=== PATIENT | male | born 1975 | race Caucasian/White ===

== ENCOUNTER 2021-07-24 19:56 | Inpatient (IN) ==
[2021-07-25] MEDS ORDERED: *HR* LORazepam 2 MG/ML VIAL IVP PRN ×3 (00:36→03:07)
[2021-07-25] MEDS ORDERED: Thiamine (B-1) 100 MG, Folic Acid 1 MG in 0.9 % Sodium Chloride 100 ML IVPB ONE (01:00)
[2021-07-25] MEDS ORDERED: Ondansetron 4 MG/2 ML VIAL IVP PRN (01:48)
[2021-07-25] MEDS ORDERED: Naloxone 0.4 MG/ML INJ IVP PRN (01:48)
[2021-07-25 01:55] LABS: Basophils # 0.2 K/mcL (0.0-0.2); Basophils % 1.2 %; Eosinophils # 1.5 K/mcL (0.0-0.6); Eosinophils % 8.9 %; Hematocrit 36.9 % (37.5-50.1); Immature Granulocytes % 0.7 % (0-4); Lymphocytes # 2.2 K/mcL (0.6-4.6); Lymphocytes % 13.4 %; Mean Corpuscular HGB Conc 32.5 g/dL (31.6-35.5); Mean Corpuscular Hemoglobin 32.9 pg (28.0-33.3); Mean Corpuscular Volume 101.1 fL (83.0-100.0); Monocytes # 2.2 K/mcL (0.0-1.3); Monocytes % 13.3 %; Neutrophils # 10.4 K/mcL (1.6-8.9); Platelet Count 304 K/mcL (140-400); Red Blood Count 3.65 M/mcL (4.19-5.50); Red Cell Distribution Width 12.5 % (11.5-14.5); Segmented Neutrophils % 62.5 %; White Blood Count 16.6 K/mcL (4.3-11.1)
[2021-07-25 02:18] LABS: Alanine Aminotransferase 12 Units/L (7-52); Albumin 3.2 g/dL (3.5-5.7); Albumin/Globulin Ratio 0.9 (1.1-2.2); Alkaline Phosphatase 195 Units/L (34-104); Amylase 204 Units/L (29-103); Aspartate Amino Transferase 13 Units/L (13-39); BUN/Creatinine Ratio 13 (6-26); Bilirubin,Direct 0.4 mg/dL (0.0-0.2); Bilirubin,Indirect 0.6 mg/dL (0.0-1.0); Blood Urea Nitrogen 6 mg/dL (6-20); Calcium 8.3 mg/dL (8.6-10.3); Carbon Dioxide 27 mEq/L (23-29); Chloride 99 mEq/L (98-107); Ethanol < 10 mg/dL (Less than 10); Globulin 3.4 g/dL (2.4-3.5); Glucose 92 mg/dL (70-105); Lipase 390 Units/L (11-82); Osmolality,Calculated 277 (280-300); Potassium 3.4 mEq/L (3.5-5.1); Sodium 135 mEq/L (136-145); Total Protein 6.6 g/dL (6.4-8.9); Troponin I < 0.03 ng/mL (< 0.04); eGFR For African Americans > 60 (> 60); eGFR For Non-African Americans > 60 (> 60)
[2021-07-25 02:32] LABS: Influenza A PCR Negative (Negative); Influenza B PCR Negative (Negative); Resp. Syncytial Virus PCR Negative (Negative); SARS-CoV-2 by PCR (In House) Negative (Negative)
[2021-07-25] MEDS: Piperacillin/Tazobactam 3.375 GM in 0.9 % Sodium Chloride Mini Bag 100 ML IVPB SCH ×3 (03:56→18:56)
[2021-07-25] MEDS: Ringers Solution, Lactated 1,000 ML IVC SCH ×2 (04:00→10:56)
[2021-07-25 04:28] LABS: Hematocrit 37.6 % (37.5-50.1); Hemoglobin 12.1 g/dL (12.9-16.9); Mean Corpuscular HGB Conc 32.2 g/dL (31.6-35.5); Mean Corpuscular Hemoglobin 32.4 pg (28.0-33.3); Mean Corpuscular Volume 100.5 fL (83.0-100.0); Mean Platelet Volume 10.2 fL (9.4-12.4); Platelet Count 308 K/mcL (140-400); Red Blood Count 3.74 M/mcL (4.19-5.50); Red Cell Distribution Width 12.5 % (11.5-14.5)
[2021-07-25 04:35] LABS: INR 1.5; Prothrombin Time 16.8 Seconds (9.4-12.1)
[2021-07-25 04:50] LABS: Alanine Aminotransferase 14 Units/L (7-52); Albumin 3.2 g/dL (3.5-5.7); Alkaline Phosphatase 185 Units/L (34-104); Aspartate Amino Transferase 19 Units/L (13-39); BUN/Creatinine Ratio 10 (6-26); Bilirubin,Direct 0.1 mg/dL (0.0-0.2); Bilirubin,Indirect 0.9 mg/dL (0.0-1.0); Blood Urea Nitrogen 5 mg/dL (6-20); Calcium 8.3 mg/dL (8.6-10.3); Carbon Dioxide 27 mEq/L (23-29); Chloride 100 mEq/L (98-107); Globulin 3.3 g/dL (2.4-3.5); Glucose 81 mg/dL (70-105); Osmolality,Calculated 278 (280-300); Potassium 3.9 mEq/L (3.5-5.1); Sodium 136 mEq/L (136-145); Total Protein 6.5 g/dL (6.4-8.9); eGFR For African Americans > 60 (> 60); eGFR For Non-African Americans > 60 (> 60)
[2021-07-25 14:32] LABS: Hematocrit 33.3 % (37.5-50.1)
[2021-07-25] MEDS ORDERED: Dextrose Gel 15 GM/37.5 ML TUBE PO PRN ×2 (23:36)
[2021-07-25] MEDS ORDERED: D5% in Water 1,000 ML IVC PRN (23:36)
[2021-07-25] MEDS ORDERED: *HR* Dextrose 50 % in Water (Syg) 50 ML SYRINGE IVP PRN (23:36)
[2021-07-26 02:25] LABS: Basophils # 0.2 K/mcL (0.0-0.2); Basophils % 1.3 %; Eosinophils # 1.1 K/mcL (0.0-0.6); Eosinophils % 7.8 %; Hematocrit 34.8 % (37.5-50.1); Hemoglobin 11.6 g/dL (12.9-16.9); Immature Granulocytes % 0.7 % (0-4); Lymphocytes # 2.8 K/mcL (0.6-4.6); Lymphocytes % 20.2 %; Mean Corpuscular HGB Conc 33.3 g/dL (31.6-35.5); Mean Corpuscular Hemoglobin 33.3 pg (28.0-33.3); Mean Platelet Volume 10.2 fL (9.4-12.4); Monocytes # 1.7 K/mcL (0.0-1.3); Monocytes % 12.4 %; Neutrophils # 8.1 K/mcL (1.6-8.9); Platelet Count 352 K/mcL (140-400); Red Blood Count 3.48 M/mcL (4.19-5.50); Red Cell Distribution Width 12.5 % (11.5-14.5); Segmented Neutrophils % 57.6 %
[2021-07-26 02:37] LABS: INR 1.4; Prothrombin Time 16.1 Seconds (9.4-12.1)
[2021-07-26 02:44] LABS: Alanine Aminotransferase 9 Units/L (7-52); Albumin/Globulin Ratio 0.9 (1.1-2.2); Alkaline Phosphatase 175 Units/L (34-104); Aspartate Amino Transferase 9 Units/L (13-39); BUN/Creatinine Ratio 9 (6-26); Bilirubin,Total 0.8 mg/dL (0.3-1.0); Blood Urea Nitrogen 5 mg/dL (6-20); Carbon Dioxide 25 mEq/L (23-29); Chloride 100 mEq/L (98-107); Globulin 3.3 g/dL (2.4-3.5); Glucose 52 mg/dL (70-105); Lipase 177 Units/L (11-82); Magnesium 2.1 mg/dL (1.6-2.6); Osmolality,Calculated 279 (280-300); Potassium 3.2 mEq/L (3.5-5.1); Sodium 137 mEq/L (136-145); Total Protein 6.3 g/dL (6.4-8.9); eGFR For African Americans > 60 (> 60); eGFR For Non-African Americans > 60 (> 60)
[2021-07-26] MEDS: Piperacillin/Tazobactam 3.375 GM in 0.9 % Sodium Chloride Mini Bag 100 ML IVPB SCH ×3 (02:58→21:19)
[2021-07-26] MEDS ORDERED: *HR* Heparin 5,000 UNIT/ML VIAL IVP ONE (10:56)
[2021-07-26] MEDS ORDERED: *HR* Heparin 5,000 UNIT/ML VIAL IVP PRN (10:56)
[2021-07-26 12:38] LABS: Hematocrit 33.6 % (37.5-50.1); Hemoglobin 11.3 g/dL (12.9-16.9); Mean Corpuscular HGB Conc 33.6 g/dL (31.6-35.5); Mean Corpuscular Hemoglobin 33.7 pg (28.0-33.3); Mean Corpuscular Volume 100.3 fL (83.0-100.0); Mean Platelet Volume 10.2 fL (9.4-12.4); Platelet Count 391 K/mcL (140-400); Red Blood Count 3.35 M/mcL (4.19-5.50); Red Cell Distribution Width 12.3 % (11.5-14.5); White Blood Count 13.8 K/mcL (4.3-11.1)
[2021-07-26] MEDS: Heparin 25,000UNIT/250ML 1/2NS 25,000 UNIT/250 ML IV.SOLN IVC SCH (12:43)
[2021-07-26 12:46] LABS: Heparin anti-factor XA UFH < 0.04 IU/mL (0.30-0.70)
[2021-07-26 12:47] LABS: INR 1.5; Prothrombin Time 16.2 Seconds (9.4-12.1)
[2021-07-26] MEDS: *HR* Heparin 5,000 UNIT/ML VIAL IVP PRN (21:17)
[2021-07-27] MEDS: Piperacillin/Tazobactam 3.375 GM in 0.9 % Sodium Chloride Mini Bag 100 ML IVPB SCH ×2 (03:45→11:43)
[2021-07-27 03:59] LABS: Hematocrit 34.8 % (37.5-50.1); Hemoglobin 11.3 g/dL (12.9-16.9); Mean Corpuscular HGB Conc 32.5 g/dL (31.6-35.5); Mean Corpuscular Hemoglobin 32.5 pg (28.0-33.3); Mean Platelet Volume 9.8 fL (9.4-12.4); Platelet Count 392 K/mcL (140-400); Red Blood Count 3.48 M/mcL (4.19-5.50); Red Cell Distribution Width 12.4 % (11.5-14.5); White Blood Count 12.1 K/mcL (4.3-11.1)
[2021-07-27 04:17] LABS: Alanine Aminotransferase 9 Units/L (7-52); Albumin 3.2 g/dL (3.5-5.7); Albumin/Globulin Ratio 0.9 (1.1-2.2); Alkaline Phosphatase 235 Units/L (34-104); Aspartate Amino Transferase 13 Units/L (13-39); BUN/Creatinine Ratio 6 (6-26); Bilirubin,Total 0.8 mg/dL (0.3-1.0); Blood Urea Nitrogen 3 mg/dL (6-20); Calcium 8.5 mg/dL (8.6-10.3); Carbon Dioxide 30 mEq/L (23-29); Chloride 97 mEq/L (98-107); Globulin 3.7 g/dL (2.4-3.5); Glucose 90 mg/dL (70-105); Magnesium 2.1 mg/dL (1.6-2.6); Osmolality,Calculated 272 (280-300); Potassium 3.1 mEq/L (3.5-5.1); Sodium 133 mEq/L (136-145); Total Protein 6.9 g/dL (6.4-8.9); eGFR For African Americans > 60 (> 60); eGFR For Non-African Americans > 60 (> 60)
[2021-07-27] MEDS: *HR* Heparin 5,000 UNIT/ML VIAL IVP PRN (04:28)
[2021-07-27] MEDS: Heparin 25,000UNIT/250ML 1/2NS 25,000 UNIT/250 ML IV.SOLN IVC SCH (11:47)
[2021-07-27] MEDS ORDERED: Apixaban 5 MG TABLET PO SCH (14:45)
[2021-07-27 15:31] VITALS: BP 124/75; PULSE 56; TEMP 97.8; O2SAT 97
== END 2021-07-27 18:52 | disposition home or self-care (01) | DRG 282 ==
LOC: EMEROOARM 19:56 → 3ANU 19:56 → SUATTDRO 07-25 02:01 → 3ANU 07-25 03:28
PROVIDERS: ADMIT Internal Medicine; ATTEND Internal Medicine

== ENCOUNTER 2021-08-30 22:14 | Observation (INO) ==
[2021-08-30 23:11] LABS: Basophils % 0.4 %; Eosinophils # 0.2 K/mcL (0.0-0.6); Eosinophils % 2.5 %; Hematocrit 37.9 % (37.5-50.1); Hemoglobin 12.6 g/dL (12.9-16.9); Immature Granulocytes % 0.4 % (0-4); Lymphocytes # 1.8 K/mcL (0.6-4.6); Lymphocytes % 19.8 %; Mean Corpuscular HGB Conc 33.2 g/dL (31.6-35.5); Mean Corpuscular Hemoglobin 32.1 pg (28.0-33.3); Mean Corpuscular Volume 96.7 fL (83.0-100.0); Mean Platelet Volume 9.6 fL (9.4-12.4); Monocytes # 0.9 K/mcL (0.0-1.3); Monocytes % 9.7 %; Neutrophils # 6.1 K/mcL (1.6-8.9); Platelet Count 217 K/mcL (140-400); Red Blood Count 3.92 M/mcL (4.19-5.50); Segmented Neutrophils % 67.2 %; White Blood Count 9.1 K/mcL (4.3-11.1)
[2021-08-30 23:30] LABS: Alanine Aminotransferase 18 Units/L (7-52); Albumin 2.8 g/dL (3.5-5.7); Albumin/Globulin Ratio 0.8 (1.1-2.2); Alkaline Phosphatase 153 Units/L (34-104); Aspartate Amino Transferase 35 Units/L (13-39); BUN/Creatinine Ratio 7 (6-26); Bilirubin,Direct 0.2 mg/dL (0.0-0.2); Bilirubin,Indirect 0.5 mg/dL (0.0-1.0); Bilirubin,Total 0.7 mg/dL (0.3-1.0); Blood Urea Nitrogen 3 mg/dL (6-20); Calcium 7.9 mg/dL (8.6-10.3); Carbon Dioxide 25 mEq/L (23-29); Chloride 101 mEq/L (98-107); Globulin 3.6 g/dL (2.4-3.5); Glucose 70 mg/dL (70-105); Lipase 363 Units/L (11-82); Osmolality,Calculated 277 (280-300); Potassium 3.5 mEq/L (3.5-5.1); Sodium 136 mEq/L (136-145); Total Protein 6.4 g/dL (6.4-8.9); eGFR For African Americans > 60 (> 60); eGFR For Non-African Americans > 60 (> 60)
[2021-08-30 23:42] LABS: INR 1.2; Prothrombin Time 13.7 Seconds (9.4-12.1)
[2021-08-30 23:45] LABS: Activated Partial Thrombo Time 35.7 Seconds (26.0-36.0)
[2021-08-31] MEDS ORDERED: Isovue-370 500 ML BOTTLE IVP ONE (00:07)
[2021-08-31] MEDS ORDERED: 0.9 % Sodium Chloride 1,000 ML IVC ONE (02:37)
[2021-08-31] MEDS ORDERED: Melatonin 3 MG TABLET PO PRN (02:45)
[2021-08-31] MEDS ORDERED: Acetaminophen 325 MG TABLET PO PRN (02:45)
[2021-08-31] MEDS ORDERED: Naloxone 0.4 MG/ML INJ IVP PRN (02:45)
[2021-08-31] MEDS ORDERED: Ondansetron 4 MG/2 ML VIAL IVP PRN (02:45)
[2021-08-31] MEDS ORDERED: *HR* LORazepam 2 MG/ML VIAL IVP PRN ×3 (02:46)
[2021-08-31] MEDS ORDERED: Pantoprazole 40 MG VIAL IVP ONE (02:47)
[2021-08-31] MEDS ORDERED: Saliva Stimulant 44.3ml BOTTLE PO PRN (02:49)
[2021-08-31] MEDS ORDERED: Morphine Sulfate 2 MG/ML SYRINGE IVP STA (02:53)
[2021-08-31] MEDS ORDERED: Ondansetron 4 MG/2 ML VIAL IVP ONE (02:54)
[2021-08-31] MEDS ORDERED: Dextrose Gel 15 GM/37.5 ML TUBE PO PRN ×2 (03:25)
[2021-08-31] MEDS ORDERED: *HR* Dextrose 50 % in Water (Syg) 50 ML SYRINGE IVP PRN (03:25)
[2021-08-31] MEDS ORDERED: D5% in Water 1,000 ML IVC PRN (03:25)
[2021-08-31] MEDS ORDERED: Ipratropium/Albuterol Neb 3 ML IH PRN (03:46)
[2021-08-31] MEDS: Calcium Gluconate 1gm/50mL 1 GM/50 ML BAG IVPB SCH ×2 (05:29→06:48)
[2021-08-31 05:57] LABS: Basophils % 0.6 %; Eosinophils # 0.3 K/mcL (0.0-0.6); Eosinophils % 3.7 %; Hematocrit 36.1 % (37.5-50.1); Hemoglobin 11.9 g/dL (12.9-16.9); Immature Granulocytes % 0.3 % (0-4); Lymphocytes # 1.9 K/mcL (0.6-4.6); Lymphocytes % 25.5 %; Mean Corpuscular Hemoglobin 32.3 pg (28.0-33.3); Mean Corpuscular Volume 98.1 fL (83.0-100.0); Mean Platelet Volume 9.9 fL (9.4-12.4); Monocytes # 0.8 K/mcL (0.0-1.3); Monocytes % 10.3 %; Neutrophils # 4.3 K/mcL (1.6-8.9); Platelet Count 196 K/mcL (140-400); Red Blood Count 3.68 M/mcL (4.19-5.50); Red Cell Distribution Width 15.1 % (11.5-14.5); Segmented Neutrophils % 59.6 %; White Blood Count 7.3 K/mcL (4.3-11.1)
[2021-08-31] MEDS ORDERED: Pantoprazole 40 MG VIAL IVP SCH ×2 (06:00→18:00)
[2021-08-31] MEDS ORDERED: Calcium Gluconate 1gm/50mL 1 GM/50 ML BAG IVPB SCH (06:00)
[2021-08-31 06:09] LABS: Alanine Aminotransferase 16 Units/L (7-52); Albumin 2.5 g/dL (3.5-5.7); Alkaline Phosphatase 157 Units/L (34-104); Aspartate Amino Transferase 30 Units/L (13-39); BUN/Creatinine Ratio 8 (6-26); Bilirubin,Total 0.9 mg/dL (0.3-1.0); Blood Urea Nitrogen 3 mg/dL (6-20); Calcium 7.7 mg/dL (8.6-10.3); Carbon Dioxide 22 mEq/L (23-29); Chloride 102 mEq/L (98-107); Ethanol < 10 mg/dL (Less than 10); Glucose 63 mg/dL (70-105); Osmolality,Calculated 277 (280-300); Potassium 3.8 mEq/L (3.5-5.1); Sodium 136 mEq/L (136-145); eGFR For African Americans > 60 (> 60); eGFR For Non-African Americans > 60 (> 60)
[2021-08-31 06:10] LABS: Chol/HDL Ratio 2.6 (0-4.9)
[2021-08-31 06:15] LABS: Albumin/Globulin Ratio 0.8 (1.1-2.2); Globulin 3.3 g/dL (2.4-3.5); Total Protein 5.8 g/dL (6.4-8.9)
[2021-08-31] MEDS: Octreotide 400 MCG in 0.9 % Sodium Chloride 100 ML IVC SCH ×2 (06:40→14:38)
[2021-08-31 07:38] LABS: INR 1.3; Prothrombin Time 14.1 Seconds (9.4-12.1)
[2021-08-31 07:40] LABS: Activated Partial Thrombo Time 34.1 Seconds (26.0-36.0)
[2021-08-31] MEDS ORDERED: Ringers Solution, Lactated 1,000 ML IVC SCH ×2 (07:45→13:52)
[2021-08-31] MEDS: Ipratropium/Albuterol Neb 3 ML IH SCH ×3 (08:01→19:53)
[2021-08-31] MEDS: Budesonide/Formoterol 160/4.5 1 PUFF INH IH SCH ×2 (08:02→19:52)
[2021-08-31] MEDS: MethylPREDNISolone 40 MG/ML VIAL IVP SCH (08:03)
[2021-08-31] MEDS: Nicotine 21 MG PATCH.TD24 TD SCH (08:04)
[2021-08-31] MEDS: Folic Acid 1 MG in 0.9 % Sodium Chloride 50 ML IVPB SCH (08:04)
[2021-08-31] MEDS: Sennosides/Docusate Sodium TABLET PO SCH ×2 (08:04→20:41)
[2021-08-31] MEDS: polyethylene glycoL 3350 17 GM POWD.PACK PO SCH (08:04)
[2021-08-31] MEDS ORDERED: Folic Acid 1 MG TABLET PO SCH (09:00)
[2021-08-31] MEDS ORDERED: Thiamine (B-1) 100 MG TABLET PO SCH (09:00)
[2021-08-31] MEDS ORDERED: Vitamin B Complex/Vit C/Vit E 1 EACH TABLET PO SCH (09:00)
[2021-08-31] MEDS: Thiamine (B-1) 200 MG in 0.9 % Sodium Chloride 50 ML IVPB SCH (09:03)
[2021-08-31] MEDS ORDERED: Lidocaine -MPF 2% 5 ML VIAL ONE (13:56)
[2021-08-31] MEDS ORDERED: *HR* Propofol 200 MG/20 ML VIAL IVP ONE ×2 (13:56→14:05)
[2021-08-31 15:03] LABS: RBC,Peritoneal Fluid 10000 RBC/mcL
[2021-08-31 15:23] LABS: Glucose,Peritoneal Fluid 62 mg/dL (No Ref Range); LDH,Peritoneal Fluid 70 Units/L (No Ref Range); Total Protein,Peritoneal Fluid < 2.0 g/dL
[2021-08-31 16:24] LABS: Appearance of Peritoneal Fl HAZY (Clear)
[2021-08-31 17:31] LABS: Basophils,Peritoneal Fluid 0 %; Eosinophils,Peritoneal Fluid 0 %
[2021-08-31] MEDS ORDERED: Thiamine (B-1) 100 MG, Folic Acid 1 MG, MVI, adult with vitamin K 10 ML in 0.9 % Sodi... IVPB SCH (18:00)
[2021-09-01] MEDS: Ipratropium/Albuterol Neb 3 ML IH SCH ×2 (03:57→07:53)
[2021-09-01 04:28] VITALS: TEMP 98.1
[2021-09-01 04:55] LABS: Basophils % 0.4 %; Eosinophils % 0.4 %; Hematocrit 32.7 % (37.5-50.1); Immature Granulocytes % 0.5 % (0-4); Lymphocytes # 1.8 K/mcL (0.6-4.6); Lymphocytes % 21.9 %; Mean Corpuscular HGB Conc 33.6 g/dL (31.6-35.5); Mean Corpuscular Hemoglobin 32.3 pg (28.0-33.3); Mean Corpuscular Volume 95.9 fL (83.0-100.0); Mean Platelet Volume 10.8 fL (9.4-12.4); Monocytes # 0.8 K/mcL (0.0-1.3); Monocytes % 9.3 %; Neutrophils # 5.7 K/mcL (1.6-8.9); Platelet Count 194 K/mcL (140-400); Red Blood Count 3.41 M/mcL (4.19-5.50); Red Cell Distribution Width 14.9 % (11.5-14.5); Segmented Neutrophils % 67.5 %; White Blood Count 8.4 K/mcL (4.3-11.1)
[2021-09-01 05:08] LABS: BUN/Creatinine Ratio 14 (6-26); Blood Urea Nitrogen 5 mg/dL (6-20); Calcium 8.1 mg/dL (8.6-10.3); Carbon Dioxide 26 mEq/L (23-29); Chloride 101 mEq/L (98-107); Glucose 249 mg/dL (70-105); Magnesium 1.9 mg/dL (1.6-2.6); Osmolality,Calculated 280 (280-300); Phosphorous 2.8 mg/dL (2.7-4.5); Potassium 3.9 mEq/L (3.5-5.1); Sodium 132 mEq/L (136-145); eGFR For African Americans > 60 (> 60); eGFR For Non-African Americans > 60 (> 60)
[2021-09-01 05:11] LABS: Iron 28 mcg/dL (65-175)
[2021-09-01 05:26] LABS: Ferritin 484 ng/mL (20-250)
[2021-09-01 05:31] LABS: Folate 5.4 ng/mL (3.0-16.0)
[2021-09-01 06:02] LABS: % Iron Saturation 16 % (20-55); Transferrin 125 mg/dL (203-362)
[2021-09-01 07:16] VITALS: BP 111/70; PULSE 62; O2SAT 97
[2021-09-01] MEDS: Budesonide/Formoterol 160/4.5 1 PUFF INH IH SCH (07:54)
[2021-09-01] MEDS: Nicotine 21 MG PATCH.TD24 TD SCH (08:05)
[2021-09-01] MEDS: polyethylene glycoL 3350 17 GM POWD.PACK PO SCH (08:07)
[2021-09-01] MEDS: Sennosides/Docusate Sodium TABLET PO SCH (08:08)
[2021-09-01] MEDS: MethylPREDNISolone 40 MG/ML VIAL IVP SCH (08:09)
[2021-09-01] MEDS: Thiamine (B-1) 200 MG in 0.9 % Sodium Chloride 50 ML IVPB SCH (08:31)
[2021-09-01] MEDS: Folic Acid 1 MG in 0.9 % Sodium Chloride 50 ML IVPB SCH (08:32)
== END 2021-09-01 11:49 | disposition home or self-care (01) ==
LOC: EMEROOARM 22:14 → 3BNU 22:14 → SUATTDRO 08-31 03:26 → 3BNU 08-31 04:40
PROVIDERS: ADMIT Internal Medicine; ATTEND Internal Medicine

== ENCOUNTER 2022-01-19 13:39 | Inpatient (IN) ==
[2022-01-19 16:24] LABS: Basophils # 0.1 K/mcL (0.0-0.2); Basophils % 0.5 %; Eosinophils # 0.1 K/mcL (0.0-0.6); Eosinophils % 1.1 %; Hematocrit 31.9 % (37.5-50.1); Hemoglobin 10.9 g/dL (12.9-16.9); Lymphocytes # 2.4 K/mcL (0.6-4.6); Lymphocytes % 22.1 %; Mean Corpuscular HGB Conc 34.2 g/dL (31.6-35.5); Mean Corpuscular Hemoglobin 33.3 pg (28.0-33.3); Mean Corpuscular Volume 97.6 fL (83.0-100.0); Mean Platelet Volume 9.9 fL (9.4-12.4); Monocytes # 0.9 K/mcL (0.0-1.3); Monocytes % 8.4 %; Neutrophils # 7.4 K/mcL (1.6-8.9); Platelet Count 277 K/mcL (140-400); Red Blood Count 3.27 M/mcL (4.19-5.50); Segmented Neutrophils % 66.9 %
[2022-01-19 16:30] LABS: BUN/Creatinine Ratio 11 (6-26); Blood Urea Nitrogen 4 mg/dL (6-20); Carbon Dioxide 23 mEq/L (23-29); Chloride 94 mEq/L (98-107); Glucose 107 mg/dL (70-105); Osmolality,Calculated 259 (280-300); Potassium 3.2 mEq/L (3.5-5.1); Sodium 126 mEq/L (136-145); eGFR For African Americans > 60 (> 60); eGFR For Non-African Americans > 60 (> 60)
[2022-01-19 18:15] LABS: Bacteria,Urine Few per hpf (None-Few); Bilirubin,Urine Negative (Negative); Blood,Urine Negative (Negative); Clarity,Urine Turbid (Clear); Color,Urine Light-Yellow (Yellow); Glucose,Urine (UA) Normal (Normal); Ketones,Urine Negative (Negative); Leukocyte Esterase,Urine Small (Negative); Nitrite,Urine Negative (Negative); Protein,Urine Negative (Neg-Trace); RBC,Urine 0-3 per hpf (0-3); Specific Gravity,Urine < 1.005 (1.010-1.025); Uric Acid Crystals,Urine Present per hpf; Urobilinogen,Urine Normal (Normal); WBC,Urine 0-3 per hpf (0-3)
[2022-01-19] MEDS: 0.9 % Sodium Chloride 1,000 ML IVC ONE ×2 (18:25→19:08)
[2022-01-19] MEDS ORDERED: Ipratropium/Albuterol Neb 3 ML IH ONE (18:29)
[2022-01-19] MEDS ORDERED: Albuterol 2.5 MG/3 ML NEBULIZER IH ONE (18:29)
[2022-01-19 18:37] LABS: Alanine Aminotransferase 33 Units/L (7-52); Albumin < 1.5 g/dL (3.5-5.7); Alkaline Phosphatase 316 Units/L (34-104); Aspartate Amino Transferase 24 Units/L (13-39); Bilirubin,Direct 0.8 mg/dL (0.0-0.2); Bilirubin,Indirect 0.6 mg/dL (0.0-1.0); Bilirubin,Total 1.4 mg/dL (0.3-1.0); Ethanol 88 mg/dL (Less than 10); Lipase 24 Units/L (11-82); Total Protein 6.3 g/dL (6.4-8.9)
[2022-01-19 18:45] LABS: Amphetamine Screen,Urine Negative ng/mL (Cutoff=1000); Barbiturate Screen,Urine Negative ng/mL (Cutoff=200); Benzodiazepines Screen,Urine Negative ng/mL (Cutoff=200); Cannabinoid Screen,Urine Negative ng/mL (Cutoff = 50); Cocaine Screen,Urine Negative ng/mL (Cutoff= 300); Opiate Screen,Urine Negative ng/mL (Cutoff=300); Phencyclidine Screen,Urine Negative ng/mL (Cutoff=25)
[2022-01-19] MEDS ORDERED: Iopamidol - 370 500 ML MLS IVP ONE (20:12)
[2022-01-19] MEDS ORDERED: Magnesium Sulfate 1 GM/102 ML PIGGYBACK IVPB ONE (20:18)
[2022-01-19] MEDS ORDERED: *HR* LORazepam 2 MG/ML VIAL IVP ONE (20:41)
[2022-01-19] MEDS ORDERED: 0.9 % Sodium Chloride 500 ML IVC ONE (21:21)
[2022-01-19] MEDS ORDERED: Ondansetron 4 MG/2 ML VIAL IVP PRN (21:54)
[2022-01-19] MEDS ORDERED: Acetaminophen 325 MG TABLET PO PRN (21:54)
[2022-01-19] MEDS ORDERED: Naloxone 0.4 MG/ML INJ IVP PRN (21:54)
[2022-01-19] MEDS ORDERED: Melatonin 3 MG TABLET PO PRN (21:54)
[2022-01-19] MEDS ORDERED: *HR* LORazepam 2 MG/ML VIAL IVP PRN (21:57)
[2022-01-19 22:40] LABS: ABG Base Excess -1 mEq/L (-2 to 3); ABG HCO3 22 mEq/L (21-27); ABG Oxygen Saturation 100 % (95-98); ABG PCO2 30 mmHg (35-45); ABG PH 7.48 pH Units (7.32-7.45); ABG PO2 180 mmHg (85-104); ABG TCO2 23 mEq/L (20-26)
[2022-01-20 00:09] LABS: BUN/Creatinine Ratio 11 (6-26); Blood Urea Nitrogen 4 mg/dL (6-20); Calcium 6.8 mg/dL (8.6-10.3); Carbon Dioxide 24 mEq/L (23-29); Chloride 97 mEq/L (98-107); Glucose 102 mg/dL (70-105); Magnesium 2.1 mg/dL (1.6-2.6); Osmolality,Calculated 265 (280-300); Potassium 3.1 mEq/L (3.5-5.1); Sodium 129 mEq/L (136-145); eGFR For African Americans > 60 (> 60); eGFR For Non-African Americans > 60 (> 60)
[2022-01-20] MEDS: 0.9 % Sodium Chloride 1,000 ML IVC SCH ×2 (00:37→12:13)
[2022-01-20] MEDS: Thiamine (B-1) 100 MG, Folic Acid 1 MG, MVI, adult with vitamin K 10 ML in 0.9 % Sodi... IVPB SCH ×2 (02:41→17:38)
[2022-01-20] MEDS: cefTRIAXone 1,000 MG in Water for inj. (sterile) 10 ML IVP SCH (05:10)
[2022-01-20 11:03] LABS: Alanine Aminotransferase 28 Units/L (7-52); Albumin < 1.5 g/dL (3.5-5.7); Alkaline Phosphatase 294 Units/L (34-104); Aspartate Amino Transferase 23 Units/L (13-39); Bilirubin,Indirect 0.9 mg/dL (0.0-1.0); Bilirubin,Total 1.9 mg/dL (0.3-1.0); Total Protein 5.7 g/dL (6.4-8.9)
[2022-01-20] MEDS: *HR* LORazepam 2 MG/ML VIAL IVP PRN ×2 (13:08→16:19)
[2022-01-20] MEDS ORDERED: 0.9 % Sodium Chloride 1,000 ML IVC ONE (14:59)
[2022-01-20] MEDS: Gabapentin 300 MG CAPSULE PO SCH ×2 (15:06→19:42)
[2022-01-20] MEDS: Dexmedetomidine HCl 400 MCG/100 ML MLS IVC SCH (17:25)
[2022-01-20] MEDS: Albumin Human 5% 12.5 GM/250 ML IV.SOLN IVC SCH (22:54)
[2022-01-21] MEDS: Albumin Human 5% 12.5 GM/250 ML IV.SOLN IVC SCH (00:56)
[2022-01-21] MEDS: Budesonide/Formoterol 80/4.5 1 PUFF INH IH SCH ×3 (01:05→20:21)
[2022-01-21 03:31] LABS: Hematocrit 28.5 % (37.5-50.1); Hemoglobin 9.6 g/dL (12.9-16.9); Mean Corpuscular HGB Conc 33.7 g/dL (31.6-35.5); Mean Corpuscular Hemoglobin 33.9 pg (28.0-33.3); Mean Corpuscular Volume 100.7 fL (83.0-100.0); Mean Platelet Volume 10.4 fL (9.4-12.4); Platelet Count 189 K/mcL (140-400); Red Blood Count 2.83 M/mcL (4.19-5.50); Red Cell Distribution Width 15.4 % (11.5-14.5); White Blood Count 13.9 K/mcL (4.3-11.1)
[2022-01-21 03:43] LABS: Alanine Aminotransferase 24 Units/L (7-52); Albumin 1.7 g/dL (3.5-5.7); Albumin/Globulin Ratio 0.4 (1.1-2.2); Alkaline Phosphatase 254 Units/L (34-104); Aspartate Amino Transferase 21 Units/L (13-39); BUN/Creatinine Ratio 16 (6-26); Bilirubin,Direct 1.2 mg/dL (0.0-0.2); Bilirubin,Indirect 0.9 mg/dL (0.0-1.0); Bilirubin,Total 2.1 mg/dL (0.3-1.0); Blood Urea Nitrogen 5 mg/dL (6-20); Calcium 7.2 mg/dL (8.6-10.3); Carbon Dioxide 23 mEq/L (23-29); Chloride 102 mEq/L (98-107); Globulin 4.1 g/dL (2.4-3.5); Glucose 66 mg/dL (70-105); Osmolality,Calculated 269 (280-300); Potassium 3.5 mEq/L (3.5-5.1); Sodium 132 mEq/L (136-145); Total Protein 5.8 g/dL (6.4-8.9); eGFR For African Americans > 60 (> 60); eGFR For Non-African Americans > 60 (> 60)
[2022-01-21 03:53] LABS: INR 1.3; Prothrombin Time 14.6 Seconds (9.4-12.1)
[2022-01-21] MEDS: tiZANidine 4 MG TABLET PO SCH (09:03)
[2022-01-21] MEDS: Gabapentin 300 MG CAPSULE PO SCH ×3 (09:03→21:22)
[2022-01-21] MEDS: cefTRIAXone 1,000 MG in Water for inj. (sterile) 10 ML IVP SCH (09:04)
[2022-01-21 13:14] LABS: Influenza A PCR Negative (Negative); Influenza B PCR Negative (Negative); Resp. Syncytial Virus PCR Negative (Negative); SARS-CoV-2 by PCR (In House) Negative (Negative)
[2022-01-21] MEDS: *HR* LORazepam 2 MG/ML VIAL IVP PRN ×2 (15:16→18:17)
[2022-01-21] MEDS: Thiamine (B-1) 100 MG, Folic Acid 1 MG, MVI, adult with vitamin K 10 ML in 0.9 % Sodi... IVPB SCH (16:53)
[2022-01-21] MEDS: Dexmedetomidine HCl 400 MCG/100 ML MLS IVC SCH (16:54)
[2022-01-22] MEDS: *HR* LORazepam 2 MG/ML VIAL IVP PRN ×3 (06:25→10:39)
[2022-01-22] MEDS: Budesonide/Formoterol 80/4.5 1 PUFF INH IH SCH ×2 (07:34→20:06)
[2022-01-22 07:39] LABS: Alanine Aminotransferase 21 Units/L (7-52); Albumin 1.6 g/dL (3.5-5.7); Albumin/Globulin Ratio 0.4 (1.1-2.2); Alkaline Phosphatase 231 Units/L (34-104); Aspartate Amino Transferase 25 Units/L (13-39); BUN/Creatinine Ratio 22 (6-26); Bilirubin,Direct 0.8 mg/dL (0.0-0.2); Bilirubin,Indirect 0.9 mg/dL (0.0-1.0); Bilirubin,Total 1.7 mg/dL (0.3-1.0); Blood Urea Nitrogen 6 mg/dL (6-20); Calcium 7.1 mg/dL (8.6-10.3); Carbon Dioxide 22 mEq/L (23-29); Chloride 103 mEq/L (98-107); Globulin 4.1 g/dL (2.4-3.5); Glucose 57 mg/dL (70-105); Lactate Dehydrogenase 296 Units/L (140-271); Osmolality,Calculated 267 (280-300); Potassium 3.7 mEq/L (3.5-5.1); Sodium 131 mEq/L (136-145); Total Protein 5.7 g/dL (6.4-8.9); eGFR For African Americans > 60 (> 60); eGFR For Non-African Americans > 60 (> 60)
[2022-01-22] MEDS: cefTRIAXone 1,000 MG in Water for inj. (sterile) 10 ML IVP SCH (07:56)
[2022-01-22] MEDS: Gabapentin 300 MG CAPSULE PO SCH ×3 (07:56→19:56)
[2022-01-22] MEDS: tiZANidine 4 MG TABLET PO SCH (07:57)
[2022-01-22 08:29] LABS: INR 1.4; Prothrombin Time 16.1 Seconds (9.4-12.1)
[2022-01-22] MEDS: Albumin 25% 25gram/100mL 25 GM/100 ML IV.SOLN IVC SCH ×2 (14:20→16:01)
[2022-01-22 18:04] LABS: Glucose,Peritoneal Fluid 67 mg/dL (No Ref Range); LDH,Peritoneal Fluid 34 Units/L (No Ref Range); Total Protein,Peritoneal Fluid < 2.0 g/dL
[2022-01-22] MEDS: Dexmedetomidine HCl 400 MCG/100 ML MLS IVC SCH (18:08)
[2022-01-22 18:14] LABS: RBC,Peritoneal Fluid < 2000 RBC/mcL
[2022-01-22 19:56] LABS: Appearance of Peritoneal Fl CLEAR (Clear)
[2022-01-22] MEDS ORDERED: Furosemide 40 MG/4 ML VIAL IVP ONE (22:50)
[2022-01-22 23:23] LABS: VBG HCO3 18 mEq/L (21-27); VBG PCO2 23 mmHg (41-51); VBG PH 7.52 pH Units (7.32-7.42); VBG PO2 150 mmHg (25-50)
[2022-01-23] MEDS ORDERED: Ipratropium Neb 0.5 MG NEBULIZER IH ONE (03:09)
[2022-01-23] MEDS: *HR* LORazepam 2 MG/ML VIAL IVP PRN ×2 (03:18→10:15)
[2022-01-23 03:43] LABS: Basophils % 0.3 %; Eosinophils # 0.1 K/mcL (0.0-0.6); Eosinophils % 0.8 %; Hematocrit 27.7 % (37.5-50.1); Hemoglobin 9.5 g/dL (12.9-16.9); Immature Granulocytes % 0.4 % (0-4); Lymphocytes # 1.2 K/mcL (0.6-4.6); Lymphocytes % 9.9 %; Mean Corpuscular HGB Conc 34.3 g/dL (31.6-35.5); Mean Corpuscular Hemoglobin 34.2 pg (28.0-33.3); Mean Corpuscular Volume 99.6 fL (83.0-100.0); Mean Platelet Volume 9.7 fL (9.4-12.4); Monocytes # 0.8 K/mcL (0.0-1.3); Neutrophils # 9.7 K/mcL (1.6-8.9); Platelet Count 212 K/mcL (140-400); Red Blood Count 2.78 M/mcL (4.19-5.50); Red Cell Distribution Width 15.1 % (11.5-14.5); Segmented Neutrophils % 81.6 %; White Blood Count 11.9 K/mcL (4.3-11.1)
[2022-01-23] MEDS: levoFLOXacin 500 MG/100 ML 500 MG/100 ML BAG IVPB SCH (05:30)
[2022-01-23] MEDS: Furosemide 40 MG/4 ML VIAL IVP SCH ×2 (07:39→17:42)
[2022-01-23] MEDS: cefTRIAXone 1,000 MG in Water for inj. (sterile) 10 ML IVP SCH (07:40)
[2022-01-23] MEDS: tiZANidine 4 MG TABLET PO SCH ×2 (07:41→07:48)
[2022-01-23] MEDS: Gabapentin 300 MG CAPSULE PO SCH ×4 (07:41→20:45)
[2022-01-23] MEDS: Budesonide/Formoterol 80/4.5 1 PUFF INH IH SCH ×2 (07:53→20:00)
[2022-01-23] MEDS ORDERED: Furosemide 40 MG/4 ML VIAL IVP ONE (10:24)
[2022-01-23] MEDS ORDERED: Furosemide 20 MG/2 ML VIAL IVP ONE (10:24)
[2022-01-23 10:38] LABS: ABG Base Excess 0 mEq/L (-2 to 3); ABG HCO3 23 mEq/L (21-27); ABG Oxygen Saturation 90 % (95-98); ABG PCO2 30 mmHg (35-45); ABG PO2 53 mmHg (85-104); ABG TCO2 24 mEq/L (20-26)
[2022-01-23 11:52] LABS: ABG Base Excess 3 mEq/L (-2 to 3); ABG HCO3 27 mEq/L (21-27); ABG Oxygen Saturation 100 % (95-98); ABG PCO2 34 mmHg (35-45); ABG PO2 264 mmHg (85-104); ABG TCO2 28 mEq/L (20-26)
[2022-01-23 12:32] LABS: Adenovirus Not Detected (Not Detect); Bordetella Pertussis Not Detected (Not Detect); Chlamydophila pneumoniae Not Detected (Not Detect); Coronavirus 229E Not Detected (Not Detect); Coronavirus HKU1 Not Detected (Not Detect); Coronavirus NL63 Not Detected (Not Detect); Coronavirus OC43 Not Detected (Not Detect); Human Metapneumovirus Not Detected (Not Detect); Human Rhinovirus/Enterovirus Not Detected (Not Detect); Influenza A Subtype 2009 H1 Not Detected (Not Detect); Influenza B Not Detected (Not Detect); Mycoplasma pneumoniae Not Detected (Not Detect); Parainfluenza Virus 1 Not Detected (Not Detect); Parainfluenza Virus 2 Not Detected (Not Detect); Parainfluenza Virus 3 Not Detected (Not Detect); Parainfluenza Virus 4 Not Detected (Not Detect); Respiratory Syncytial Virus Not Detected (Not Detect); SARS-CoV-2 Not Detected (Not Detect)
[2022-01-23] MEDS: Piperacillin/Tazobactam 3.375 GM in 0.9 % Sodium Chloride Mini Bag 100 ML IVPB SCH ×2 (17:46→21:09)
[2022-01-23] MEDS: Dexmedetomidine HCl 400 MCG/100 ML MLS IVC SCH (18:29)
[2022-01-24] MEDS: levoFLOXacin 500 MG/100 ML 500 MG/100 ML BAG IVPB SCH (06:24)
[2022-01-24 06:41] LABS: Basophils # 0.1 K/mcL (0.0-0.2); Basophils % 0.5 %; Eosinophils # 0.1 K/mcL (0.0-0.6); Eosinophils % 1.2 %; Hematocrit 28.2 % (37.5-50.1); Hemoglobin 9.5 g/dL (12.9-16.9); Immature Granulocytes % 0.5 % (0-4); Lymphocytes # 1.6 K/mcL (0.6-4.6); Lymphocytes % 15.7 %; Mean Corpuscular HGB Conc 33.7 g/dL (31.6-35.5); Mean Corpuscular Hemoglobin 33.1 pg (28.0-33.3); Mean Corpuscular Volume 98.3 fL (83.0-100.0); Mean Platelet Volume 9.4 fL (9.4-12.4); Monocytes # 0.9 K/mcL (0.0-1.3); Monocytes % 8.4 %; Neutrophils # 7.5 K/mcL (1.6-8.9); Platelet Count 218 K/mcL (140-400); Red Blood Count 2.87 M/mcL (4.19-5.50); Segmented Neutrophils % 73.7 %; White Blood Count 10.2 K/mcL (4.3-11.1)
[2022-01-24 07:18] LABS: Alanine Aminotransferase 14 Units/L (7-52); Albumin 1.8 g/dL (3.5-5.7); Albumin/Globulin Ratio 0.6 (1.1-2.2); Alkaline Phosphatase 154 Units/L (34-104); Aspartate Amino Transferase 22 Units/L (13-39); BUN/Creatinine Ratio 17 (6-26); Bilirubin,Direct 1.1 mg/dL (0.0-0.2); Bilirubin,Indirect 0.8 mg/dL (0.0-1.0); Bilirubin,Total 1.9 mg/dL (0.3-1.0); Blood Urea Nitrogen 5 mg/dL (6-20); Calcium 6.8 mg/dL (8.6-10.3); Carbon Dioxide 30 mEq/L (23-29); Chloride 102 mEq/L (98-107); Globulin 3.2 g/dL (2.4-3.5); Glucose 56 mg/dL (70-105); Osmolality,Calculated 279 (280-300); Sodium 137 mEq/L (136-145); eGFR For African Americans > 60 (> 60); eGFR For Non-African Americans > 60 (> 60)
[2022-01-24] MEDS: Budesonide/Formoterol 80/4.5 1 PUFF INH IH SCH ×2 (08:04→20:16)
[2022-01-24] MEDS ORDERED: D5% in Water 1,000 ML IVC PRN (08:14)
[2022-01-24] MEDS ORDERED: Dextrose Gel 15 GM/37.5 ML TUBE PO PRN ×2 (08:14)
[2022-01-24] MEDS ORDERED: *HR* Dextrose 50 % in Water (Syg) 50 ML SYRINGE IVP PRN (08:14)
[2022-01-24] MEDS: tiZANidine 4 MG TABLET PO SCH (08:20)
[2022-01-24] MEDS: Piperacillin/Tazobactam 3.375 GM in 0.9 % Sodium Chloride Mini Bag 100 ML IVPB SCH ×2 (08:20→16:02)
[2022-01-24] MEDS: Gabapentin 300 MG CAPSULE PO SCH ×3 (08:20→22:56)
[2022-01-24] MEDS ORDERED: Albumin 25% 25gram/100mL 25 GM/100 ML IV.SOLN IVPB ONE (11:59)
[2022-01-24] MEDS ORDERED: *HR* LORazepam 2 MG/ML VIAL IVP ONE (13:39)
[2022-01-24] MEDS: Dexmedetomidine HCl 400 MCG/100 ML MLS IVC SCH (16:55)
[2022-01-24] MEDS ORDERED: Iopamidol - 370 500 ML MLS IVP ONE (18:03)
[2022-01-24] MEDS ORDERED: *HR* Heparin 5,000 UNIT/ML VIAL IVP PRN ×2 (18:13)
[2022-01-24] MEDS ORDERED: *HR* Heparin 5,000 UNIT/ML VIAL IVP ONE (18:13)
[2022-01-24] MEDS ORDERED: Heparin 25,000UNIT/250ML 1/2NS 25,000 UNIT/250 ML IV.SOLN IVC SCH (18:15)
[2022-01-24 18:25] LABS: Fluid Source for Albumin PERIT/ASCITES
[2022-01-24 18:51] LABS: Hematocrit 25.9 % (37.5-50.1); Hemoglobin 9.1 g/dL (12.9-16.9); Mean Corpuscular HGB Conc 35.1 g/dL (31.6-35.5); Mean Corpuscular Hemoglobin 34.5 pg (28.0-33.3); Mean Corpuscular Volume 98.1 fL (83.0-100.0); Mean Platelet Volume 9.8 fL (9.4-12.4); Platelet Count 228 K/mcL (140-400); Red Blood Count 2.64 M/mcL (4.19-5.50); Red Cell Distribution Width 14.9 % (11.5-14.5); White Blood Count 9.7 K/mcL (4.3-11.1)
[2022-01-24 19:03] LABS: Heparin anti-factor XA UFH < 0.04 IU/mL (0.30-0.70)
[2022-01-24 19:04] LABS: Prothrombin Time 22.6 Seconds (9.4-12.1)
[2022-01-25] MEDS: Piperacillin/Tazobactam 3.375 GM in 0.9 % Sodium Chloride Mini Bag 100 ML IVPB SCH ×3 (00:08→14:32)
[2022-01-25 04:20] LABS: Basophils # 0.1 K/mcL (0.0-0.2); Basophils % 0.7 %; Eosinophils # 0.2 K/mcL (0.0-0.6); Hematocrit 27.2 % (37.5-50.1); Hemoglobin 9.4 g/dL (12.9-16.9); Immature Granulocytes % 0.3 % (0-4); Lymphocytes # 1.8 K/mcL (0.6-4.6); Lymphocytes % 21.4 %; Mean Corpuscular HGB Conc 34.6 g/dL (31.6-35.5); Mean Corpuscular Hemoglobin 33.6 pg (28.0-33.3); Mean Corpuscular Volume 97.1 fL (83.0-100.0); Mean Platelet Volume 9.4 fL (9.4-12.4); Monocytes # 0.7 K/mcL (0.0-1.3); Monocytes % 7.8 %; Neutrophils # 5.8 K/mcL (1.6-8.9); Platelet Count 232 K/mcL (140-400); Red Cell Distribution Width 15.2 % (11.5-14.5); Segmented Neutrophils % 67.8 %; White Blood Count 8.6 K/mcL (4.3-11.1)
[2022-01-25 04:41] LABS: Alanine Aminotransferase 11 Units/L (7-52); Albumin 1.9 g/dL (3.5-5.7); Albumin/Globulin Ratio 0.6 (1.1-2.2); Alkaline Phosphatase 126 Units/L (34-104); Aspartate Amino Transferase 20 Units/L (13-39); BUN/Creatinine Ratio 14 (6-26); Bilirubin,Total 2.2 mg/dL (0.3-1.0); Blood Urea Nitrogen 4 mg/dL (6-20); Calcium 7.1 mg/dL (8.6-10.3); Carbon Dioxide 28 mEq/L (23-29); Chloride 102 mEq/L (98-107); Globulin 3.1 g/dL (2.4-3.5); Glucose 70 mg/dL (70-105); Osmolality,Calculated 277 (280-300); Potassium 2.6 mEq/L (3.5-5.1); Sodium 136 mEq/L (136-145); eGFR For African Americans > 60 (> 60); eGFR For Non-African Americans > 60 (> 60)
[2022-01-25] MEDS: levoFLOXacin 500 MG/100 ML 500 MG/100 ML BAG IVPB SCH (06:11)
[2022-01-25] MEDS: Budesonide/Formoterol 80/4.5 1 PUFF INH IH SCH ×2 (07:52→22:04)
[2022-01-25] MEDS: Folic Acid 1 MG TABLET PO SCH (09:00)
[2022-01-25] MEDS: Multivitamin Liquid 15 ML UDC PO SCH (09:00)
[2022-01-25] MEDS: Thiamine (B-1) 100 MG TABLET PO SCH (09:00)
[2022-01-25] MEDS: Gabapentin 300 MG CAPSULE PO SCH ×3 (09:00→20:02)
[2022-01-25] MEDS: tiZANidine 4 MG TABLET PO SCH (09:01)
[2022-01-25] MEDS: *HR* Rivaroxaban 15 MG TABLET PO SCH ×2 (09:04→20:02)
[2022-01-25 14:00] LABS: Magnesium 1.6 mg/dL (1.6-2.6); Phosphorous 2.9 mg/dL (2.7-4.5)
[2022-01-25] MEDS: Nicotine 21 MG PATCH.TD24 TD SCH (14:31)
[2022-01-25] MEDS: Ringers Solution, Lactated 1,000 ML IVC SCH (14:33)
[2022-01-25] MEDS ORDERED: Ipratropium/Albuterol Neb 3 ML IH PRN (16:39)
[2022-01-25] MEDS: Ipratropium/Albuterol Neb 3 ML IH SCH ×2 (18:08→22:04)
[2022-01-26] MEDS: Piperacillin/Tazobactam 3.375 GM in 0.9 % Sodium Chloride Mini Bag 100 ML IVPB SCH ×3 (00:34→15:30)
[2022-01-26] MEDS: MethylPREDNISolone 40 MG/ML VIAL IVP SCH ×3 (00:35→15:30)
[2022-01-26 02:56] LABS: Basophils # 0.1 K/mcL (0.0-0.2); Basophils % 0.6 %; Eosinophils # 0.2 K/mcL (0.0-0.6); Eosinophils % 2.7 %; Hematocrit 28.3 % (37.5-50.1); Hemoglobin 9.6 g/dL (12.9-16.9); Immature Granulocytes % 0.5 % (0-4); Lymphocytes # 1.8 K/mcL (0.6-4.6); Lymphocytes % 23.9 %; Mean Corpuscular HGB Conc 33.9 g/dL (31.6-35.5); Mean Corpuscular Hemoglobin 33.6 pg (28.0-33.3); Mean Platelet Volume 9.9 fL (9.4-12.4); Monocytes # 0.8 K/mcL (0.0-1.3); Monocytes % 10.3 %; Neutrophils # 4.8 K/mcL (1.6-8.9); Platelet Count 254 K/mcL (140-400); Red Blood Count 2.86 M/mcL (4.19-5.50); White Blood Count 7.7 K/mcL (4.3-11.1)
[2022-01-26 03:13] LABS: Alanine Aminotransferase 11 Units/L (7-52); Albumin 1.8 g/dL (3.5-5.7); Albumin/Globulin Ratio 0.6 (1.1-2.2); Alkaline Phosphatase 120 Units/L (34-104); Aspartate Amino Transferase 18 Units/L (13-39); BUN/Creatinine Ratio 15 (6-26); Bilirubin,Total 2.1 mg/dL (0.3-1.0); Blood Urea Nitrogen 4 mg/dL (6-20); Calcium 7.1 mg/dL (8.6-10.3); Carbon Dioxide 25 mEq/L (23-29); Chloride 103 mEq/L (98-107); Globulin 3.2 g/dL (2.4-3.5); Glucose 76 mg/dL (70-105); Magnesium 1.6 mg/dL (1.6-2.6); Osmolality,Calculated 276 (280-300); Phosphorous 2.4 mg/dL (2.7-4.5); Potassium 3.1 mEq/L (3.5-5.1); Sodium 135 mEq/L (136-145); eGFR For African Americans > 60 (> 60); eGFR For Non-African Americans > 60 (> 60)
[2022-01-26] MEDS: Ipratropium/Albuterol Neb 3 ML IH SCH (04:24)
[2022-01-26] MEDS: levoFLOXacin 500 MG/100 ML 500 MG/100 ML BAG IVPB SCH (06:24)
[2022-01-26] MEDS: Ringers Solution, Lactated 1,000 ML IVC SCH (07:02)
[2022-01-26] MEDS: Gabapentin 300 MG CAPSULE PO SCH ×3 (08:12→19:45)
[2022-01-26] MEDS: Thiamine (B-1) 100 MG TABLET PO SCH (08:12)
[2022-01-26] MEDS: *HR* Rivaroxaban 15 MG TABLET PO SCH ×2 (08:13→19:45)
[2022-01-26] MEDS: Folic Acid 1 MG TABLET PO SCH (08:13)
[2022-01-26] MEDS: Nicotine 21 MG PATCH.TD24 TD SCH (08:15)
[2022-01-26] MEDS: Multivitamin Liquid 15 ML UDC PO SCH (08:15)
[2022-01-26] MEDS: tiZANidine 4 MG TABLET PO SCH (10:20)
[2022-01-26] MEDS: Budesonide/Formoterol 80/4.5 1 PUFF INH IH SCH ×2 (10:40→22:39)
[2022-01-26] MEDS: Ipratropium Neb 0.5 MG NEBULIZER IH SCH ×3 (10:42→22:39)
[2022-01-26] MEDS: Magnesium Oxide 400 MG TABLET PO SCH (18:54)
[2022-01-27] MEDS: Piperacillin/Tazobactam 3.375 GM in 0.9 % Sodium Chloride Mini Bag 100 ML IVPB SCH ×3 (00:25→16:09)
[2022-01-27] MEDS: Ringers Solution, Lactated 1,000 ML IVC SCH (00:25)
[2022-01-27] MEDS: MethylPREDNISolone 40 MG/ML VIAL IVP SCH ×3 (00:26→16:09)
[2022-01-27] MEDS: Ipratropium Neb 0.5 MG NEBULIZER IH SCH ×4 (03:51→22:59)
[2022-01-27] MEDS: levoFLOXacin 500 MG/100 ML 500 MG/100 ML BAG IVPB SCH (06:48)
[2022-01-27] MEDS: Budesonide/Formoterol 80/4.5 1 PUFF INH IH SCH ×2 (09:38→22:59)
[2022-01-27] MEDS: Gabapentin 300 MG CAPSULE PO SCH ×3 (09:44→20:10)
[2022-01-27] MEDS: Folic Acid 1 MG TABLET PO SCH (09:44)
[2022-01-27] MEDS: Magnesium Oxide 400 MG TABLET PO SCH (09:46)
[2022-01-27] MEDS: *HR* Rivaroxaban 15 MG TABLET PO SCH ×2 (09:46→20:10)
[2022-01-27] MEDS: Nicotine 21 MG PATCH.TD24 TD SCH (09:47)
[2022-01-27] MEDS: tiZANidine 4 MG TABLET PO SCH (09:48)
[2022-01-27] MEDS: Thiamine (B-1) 100 MG TABLET PO SCH (09:48)
[2022-01-27] MEDS: Spironolactone 12.5 MG TABLET PO SCH (09:48)
[2022-01-27] MEDS: Multivitamin Liquid 15 ML UDC PO SCH (09:48)
[2022-01-27] MEDS: Morphine Sulfate Oral CONC 10 MG/0.5 ML ORAL.SYG SL PRN (09:53)
[2022-01-27] MEDS ORDERED: Perflutren Lipid Microsphere 1.3 ML in 0.9 % Sodium Chloride 8.7 ML IVP PRN (13:04)
[2022-01-27 14:09] LABS: Basophils % 0.1 %; Hematocrit 25.8 % (37.5-50.1); Hemoglobin 8.8 g/dL (12.9-16.9); Lymphocytes # 1.6 K/mcL (0.6-4.6); Lymphocytes % 11.5 %; Mean Corpuscular HGB Conc 34.1 g/dL (31.6-35.5); Mean Corpuscular Volume 99.6 fL (83.0-100.0); Mean Platelet Volume 9.6 fL (9.4-12.4); Monocytes # 0.9 K/mcL (0.0-1.3); Monocytes % 6.4 %; Neutrophils # 11.1 K/mcL (1.6-8.9); Platelet Count 280 K/mcL (140-400); Red Blood Count 2.59 M/mcL (4.19-5.50); Red Cell Distribution Width 15.1 % (11.5-14.5)
[2022-01-27 14:14] LABS: White Blood Count 13.7 K/mcL (4.3-11.1)
[2022-01-27 14:29] LABS: Alanine Aminotransferase 24 Units/L (7-52); Albumin 1.9 g/dL (3.5-5.7); Albumin/Globulin Ratio 0.6 (1.1-2.2); Alkaline Phosphatase 137 Units/L (34-104); Aspartate Amino Transferase 40 Units/L (13-39); BUN/Creatinine Ratio 15 (6-26); Bilirubin,Total 1.4 mg/dL (0.3-1.0); Blood Urea Nitrogen 5 mg/dL (6-20); Calcium 7.1 mg/dL (8.6-10.3); Carbon Dioxide 26 mEq/L (23-29); Chloride 104 mEq/L (98-107); Globulin 3.1 g/dL (2.4-3.5); Glucose 174 mg/dL (70-105); Magnesium 1.8 mg/dL (1.6-2.6); Osmolality,Calculated 281 (280-300); Phosphorous 2.6 mg/dL (2.7-4.5); Potassium 3.8 mEq/L (3.5-5.1); Sodium 135 mEq/L (136-145); eGFR For African Americans > 60 (> 60); eGFR For Non-African Americans > 60 (> 60)
[2022-01-28] MEDS: MethylPREDNISolone 40 MG/ML VIAL IVP SCH ×4 (00:22→23:45)
[2022-01-28] MEDS: Piperacillin/Tazobactam 3.375 GM in 0.9 % Sodium Chloride Mini Bag 100 ML IVPB SCH ×4 (00:22→23:46)
[2022-01-28] MEDS: Ipratropium Neb 0.5 MG NEBULIZER IH SCH ×4 (04:19→22:47)
[2022-01-28 04:23] LABS: Magnesium 1.8 mg/dL (1.6-2.6); Phosphorous 2.3 mg/dL (2.7-4.5)
[2022-01-28] MEDS: levoFLOXacin 500 MG/100 ML 500 MG/100 ML BAG IVPB SCH (06:09)
[2022-01-28] MEDS: Folic Acid 1 MG TABLET PO SCH (09:58)
[2022-01-28] MEDS: Nicotine 21 MG PATCH.TD24 TD SCH (09:58)
[2022-01-28] MEDS: tiZANidine 4 MG TABLET PO SCH (09:58)
[2022-01-28] MEDS: Gabapentin 300 MG CAPSULE PO SCH ×3 (09:58→20:44)
[2022-01-28] MEDS: Magnesium Oxide 400 MG TABLET PO SCH (09:59)
[2022-01-28] MEDS: Spironolactone 12.5 MG TABLET PO SCH (09:59)
[2022-01-28] MEDS: Multivitamin Liquid 15 ML UDC PO SCH (09:59)
[2022-01-28] MEDS: Thiamine (B-1) 100 MG TABLET PO SCH (09:59)
[2022-01-28] MEDS: *HR* Rivaroxaban 15 MG TABLET PO SCH ×2 (09:59→20:44)
[2022-01-28 10:02] LABS: Basophils % 0.1 %; Eosinophils % 0.1 %; Hematocrit 26.9 % (37.5-50.1); Immature Granulocytes % 0.9 % (0-4); Lymphocytes # 1.6 K/mcL (0.6-4.6); Lymphocytes % 11.4 %; Mean Corpuscular HGB Conc 33.5 g/dL (31.6-35.5); Mean Corpuscular Hemoglobin 33.7 pg (28.0-33.3); Mean Corpuscular Volume 100.7 fL (83.0-100.0); Mean Platelet Volume 9.3 fL (9.4-12.4); Monocytes # 1.4 K/mcL (0.0-1.3); Neutrophils # 10.7 K/mcL (1.6-8.9); Platelet Count 263 K/mcL (140-400); Red Blood Count 2.67 M/mcL (4.19-5.50); Red Cell Distribution Width 14.7 % (11.5-14.5); Segmented Neutrophils % 77.5 %; White Blood Count 13.8 K/mcL (4.3-11.1)
[2022-01-28] MEDS: Budesonide/Formoterol 80/4.5 1 PUFF INH IH SCH ×2 (10:16→22:47)
[2022-01-28 10:21] LABS: Alanine Aminotransferase 31 Units/L (7-52); Albumin 1.9 g/dL (3.5-5.7); Albumin/Globulin Ratio 0.5 (1.1-2.2); Alkaline Phosphatase 129 Units/L (34-104); Aspartate Amino Transferase 31 Units/L (13-39); BUN/Creatinine Ratio 25 (6-26); Blood Urea Nitrogen 7 mg/dL (6-20); Calcium 7.4 mg/dL (8.6-10.3); Carbon Dioxide 26 mEq/L (23-29); Chloride 104 mEq/L (98-107); Globulin 3.5 g/dL (2.4-3.5); Glucose 194 mg/dL (70-105); Osmolality,Calculated 281 (280-300); Potassium 3.9 mEq/L (3.5-5.1); Sodium 134 mEq/L (136-145); Total Protein 5.4 g/dL (6.4-8.9); eGFR For African Americans > 60 (> 60); eGFR For Non-African Americans > 60 (> 60)
[2022-01-28] MEDS: Furosemide 20 MG TABLET PO SCH (20:44)
[2022-01-29 00:23] LABS: Influenza A PCR Negative (Negative); Influenza B PCR Negative (Negative); Resp. Syncytial Virus PCR Negative (Negative)
[2022-01-29 00:43] LABS: SARS-CoV-2 by PCR (In House) Negative (Negative)
[2022-01-29] MEDS: Ipratropium Neb 0.5 MG NEBULIZER IH SCH ×3 (04:27→16:09)
[2022-01-29] MEDS: levoFLOXacin 500 MG/100 ML 500 MG/100 ML BAG IVPB SCH (05:08)
[2022-01-29 05:41] LABS: Basophils % 0.1 %; Hematocrit 27.5 % (37.5-50.1); Hemoglobin 9.1 g/dL (12.9-16.9); Immature Granulocytes % 0.5 % (0-4); Lymphocytes # 1.2 K/mcL (0.6-4.6); Lymphocytes % 10.6 %; Mean Corpuscular HGB Conc 33.1 g/dL (31.6-35.5); Mean Corpuscular Hemoglobin 33.3 pg (28.0-33.3); Mean Corpuscular Volume 100.7 fL (83.0-100.0); Mean Platelet Volume 9.6 fL (9.4-12.4); Monocytes # 0.8 K/mcL (0.0-1.3); Monocytes % 7.2 %; Neutrophils # 9.3 K/mcL (1.6-8.9); Platelet Count 260 K/mcL (140-400); Red Blood Count 2.73 M/mcL (4.19-5.50); Red Cell Distribution Width 14.4 % (11.5-14.5); Segmented Neutrophils % 81.6 %; White Blood Count 11.4 K/mcL (4.3-11.1)
[2022-01-29 07:02] LABS: Alanine Aminotransferase 43 Units/L (7-52); Albumin/Globulin Ratio 0.6 (1.1-2.2); Alkaline Phosphatase 156 Units/L (34-104); Aspartate Amino Transferase 28 Units/L (13-39); BUN/Creatinine Ratio 26 (6-26); Blood Urea Nitrogen 7 mg/dL (6-20); Calcium 7.3 mg/dL (8.6-10.3); Carbon Dioxide 28 mEq/L (23-29); Chloride 100 mEq/L (98-107); Globulin 3.3 g/dL (2.4-3.5); Glucose 172 mg/dL (70-105); Osmolality,Calculated 282 (280-300); Potassium 3.6 mEq/L (3.5-5.1); Sodium 135 mEq/L (136-145); Total Protein 5.3 g/dL (6.4-8.9); eGFR For African Americans > 60 (> 60); eGFR For Non-African Americans > 60 (> 60)
[2022-01-29 07:07] LABS: Phosphorous 2.3 mg/dL (2.7-4.5)
[2022-01-29] MEDS: Morphine Sulfate Oral CONC 10 MG/0.5 ML ORAL.SYG SL PRN ×2 (07:41→14:53)
[2022-01-29] MEDS: *HR* Rivaroxaban 15 MG TABLET PO SCH (07:42)
[2022-01-29] MEDS: tiZANidine 4 MG TABLET PO SCH (07:42)
[2022-01-29] MEDS: Nicotine 21 MG PATCH.TD24 TD SCH (07:42)
[2022-01-29] MEDS: Folic Acid 1 MG TABLET PO SCH (07:42)
[2022-01-29] MEDS: Magnesium Oxide 400 MG TABLET PO SCH (07:42)
[2022-01-29] MEDS: Spironolactone 12.5 MG TABLET PO SCH (07:42)
[2022-01-29] MEDS: Furosemide 20 MG TABLET PO SCH (07:42)
[2022-01-29] MEDS: Gabapentin 300 MG CAPSULE PO SCH ×2 (07:42→14:53)
[2022-01-29] MEDS: MethylPREDNISolone 40 MG/ML VIAL IVP SCH ×2 (07:42→14:53)
[2022-01-29] MEDS: Thiamine (B-1) 100 MG TABLET PO SCH (07:42)
[2022-01-29] MEDS: Piperacillin/Tazobactam 3.375 GM in 0.9 % Sodium Chloride Mini Bag 100 ML IVPB SCH ×2 (07:42→14:54)
[2022-01-29] MEDS: Multivitamin Liquid 15 ML UDC PO SCH (07:43)
[2022-01-29] MEDS: Budesonide/Formoterol 80/4.5 1 PUFF INH IH SCH (09:38)
[2022-01-29 16:11] VITALS: BP 119/86; TEMP 99; O2SAT 100
[2022-01-29 16:37] VITALS: PULSE 88
== END 2022-01-29 19:00 | disposition home health service (06) | DRG 280 ==
LOC: 2NNU 13:39 → EMEROOARM 13:39 → 2NNU 01-20 12:08 → SUATTDRO 01-20 14:19
PROVIDERS: ADMIT Family Medicine; ATTEND Family Medicine